=== PATIENT | male | born 1995 | race Caucasian/White ===

== ENCOUNTER 2019-02-04 21:08 | Emergency (ER) | payer OTHER ==
[~2019-02-04] VITALS: Ht 165.1 cm; Wt 97.9 kg
[2019-02-05] MEDS ORDERED: IBUPROFEN 600MG TABLET PO ONE (01:00)
[2019-02-05] MEDS ORDERED: TETANUS, DIPHTHERIA, PERTUSSIS VAC/PF 0.5ML (>7YR OLD) IM ONE (01:00)
[2019-02-05] MEDS ORDERED: AMOXICILLIN/POTASSIUM CLAVULANATE 875/125MG TAB PO ONE (01:00)
[2019-02-05 02:21] VITALS: BP 109/73
== END 2019-02-05 02:31 | disposition home or self-care (01) ==
LOC: ER 21:08
DX: S51.851A Open bite of right forearm, initial encounter (principal); W54.0XXA Bitten by dog, initial encounter; Y93.89 Activity, other specified; Y92.89 Other specified places as the place of occurrence of the external cause; Y99.8 Other external cause status; Z87.891 Personal history of nicotine dependence
CPT/HCPCS: 73090; 90471; 90715; 99283; Z7610

== ENCOUNTER 2019-02-07 08:30 | Emergency (ER) | payer OTHER ==
[~2019-02-07] VITALS: Ht 165.1 cm; Wt 97.0 kg
[2019-02-07 11:54] VITALS: BP 128/68
== END 2019-02-07 11:55 | disposition home or self-care (01) ==
LOC: ER 08:30
DX: S50.811A Abrasion of right forearm, initial encounter (principal); W54.0XXA Bitten by dog, initial encounter; Y93.89 Activity, other specified; Y92.89 Other specified places as the place of occurrence of the external cause; Y99.8 Other external cause status
CPT/HCPCS: 99281